=== PATIENT | female | born 1965 | race Caucasian/White ===

== ENCOUNTER → 2016-07-17 | Outpatient (CLI) | payer BC ==
[~2016-07-17] MED LIST: LSNUNK; RIZA10TA19 PO; SYN175 PO
== END | disposition home or self-care (01) ==
LOC: C.PAPS 14:24
PROVIDERS: ATTEND Obstetrics & Gynecology
DX: Z01.419 Encounter for gynecological examination (general) (routine) without abnormal findings (principal); Z87.42 Personal history of other diseases of the female genital tract; Z80.41 Family history of malignant neoplasm of ovary

== ENCOUNTER → 2016-07-17 | Outpatient (CLI) | payer BC | END | disposition home or self-care (01) | LOC: C.LAB1850 12:12 | PROVIDERS: ATTEND Obstetrics & Gynecology | DX: Z80.41 Family history of malignant neoplasm of ovary (principal) ==

== ENCOUNTER → 2016-10-09 | Outpatient (CLI) | payer BC ==
[~2016-10-09] MED LIST changes: +OPTIRAY 320 IV PRN
[2016-10-09 16:08] LABS: ALT/SGPT 31 U/L (12-78); AMYLASE 39 U/L (25-115); BLOOD UREA NITROGEN 15 mg/dl (7-18); BUN/CREATININE RATIO 18.8 (10-20); CALCIUM 10.6 mg/dl (8.5-10.1); CARBON DIOXIDE 30 mmol/L (21-32); CHLORIDE 103 mmol/L (98-107); CREATININE 0.77 mg/dl (0.60-1.20); GLUCOSE 92 mg/dl (70-99); POTASSIUM 4.1 mmol/L (3.5-5.1); SODIUM 139 mmol/L (136-145)
[2016-10-09 16:11] LABS: ALB/GLOB RATIO 1.2 (0.9-2); ALKALINE PHOSPHATASE 73 U/L (45-117); AST/SGOT 17 U/L (15-37)
[2016-10-09 17:06] LABS: BASO % 0.4 %; BASO ABS # 0.04 K/uL (0-0.2); COMPLETE YES; EOS % 2.6 %; HEMATOCRIT 45.3 % (37-47); IG% 0.3 %; LYMPH % 24.9 %; LYMPH ABS # 2.22 K/uL (1.2-3.4); MEAN CELL VOLUME 89.9 fL (80-100); MEAN CORPUSCULAR HEMOGLOBIN 30.6 pg (25-34); MEAN PLATELET VOLUME 11.2 fL (7.4-10.4); MONO % 6.8 %; PLATELET COUNT 310 K/uL (130-400); RED BLOOD COUNT 5.04 M/uL (4.2-5.4); WHITE BLOOD COUNT 8.93 K/uL (4.8-10.8)
--- NOTE | 2016-10-09 17:58 | DIAGNOSTIC IMAGING REPORT ---
ABDOMEN AND PELVIS CT WITH IV AND ORAL CONTRAST CT DOSE: 240.01 mGy.cm HISTORY: Left-sided abdominal pain. TECHNIQUE: Multiaxial CT images of the abdomen and pelvis were performed following the use of intravenous and oral contrast. COMPARISON STUDY: Abdomen and pelvis CT 08/27/2009. FINDINGS: The lung bases are clear. The liver, spleen, adrenal glands, pancreas, and gallbladder are unremarkable. Stable postoperative changes within the interpolar region of the left kidney. No hydronephrosis. A 9 mm hypodense lesion within the lower pole the right kidney is too small to characterize. This is new from the prior study but favors a cyst. Slight increase in size in the 1 cm hypodense lesion within the left kidney. This also favors a cyst. No retroperitoneal lymphadenopathy. The bladder is unremarkable. Heterogeneous appearance to the uterus. This also contains a 1.8 cm enhancing nodule within the fundus. This favors a fibroid. Normal appendix. No evidence for bowel obstruction. No significant pelvic free fluid. Normal bladder. Questionable mild thickening of the descending colon and sigmoid colon which may be due to underdistention. IMPRESSION: 1. Questionable mild thickening within the descending colon and sigmoid colon which favors underdistention. However, a low-grade colitis cannot be entirely excluded. 2. No evidence for bowel obstruction. 3. Normal appendix. 4. Bilateral renal hypodense lesions which favor cysts. Stable postoperative changes within the left kidney Electronically signed by: Robin Luong M.D. 10/09/2016 5:57 PM Dictated Date/Time: 10/09/2016 5:48 PM
== END | disposition home or self-care (01) ==
LOC: C.CTS 14:58
PROVIDERS: ATTEND Internal Medicine
DX: R10.9 Unspecified abdominal pain (principal); R19.7 Diarrhea, unspecified; K62.5 Hemorrhage of anus and rectum

== ENCOUNTER → 2016-11-07 | Outpatient (CLI) | payer BC ==
[~2016-11-07] MED LIST changes: -OPTIRAY 320 IV PRN
--- NOTE | 2016-11-07 13:30 | MAMMOGRAPHY REPORT ---
BILATERAL DIGITAL SCREENING MAMMOGRAM WITH CAD: 11/07/2016 CLINICAL HISTORY: Routine screening. Patient has no complaints. TECHNIQUE: Bilateral CC and MLO views of the breasts with and without implant displacement views were obtained. Current study was also evaluated with a Computer Aided Detection (CAD) system. COMPARISON: Comparison is made to exams dated: 07/10/2013 mammogram, 09/19/2011 mammogram, 04/05/2010 [facility], 08/13/2006, and 08/27/2008. BREAST COMPOSITION: The tissue of both breasts is heterogeneously dense, which may obscure small mas ses. FINDINGS: Bilateral subpectoral silicone implants are stable compared to the prior recent mammograms. There are a few benign-appearing calcifications in the breasts. No new suspicious mass, architectu ral distortion or cluster of microcalcifications is seen. IMPRESSION: ACR BI-RADS CATEGORY 1: NEGATIVE There is no mammographic evidence of malignancy. A 1 year screening mammogram is recommended. The pa tient will receive written notification of the results. Approximately 10% of breast cancers are not detected with mammography. A negative mammographic report should not delay biopsy if a clinically suggestive mass is present. Ariela Nick M.D. ay/:11/07/2016 12:30:12 Wardrobe Technician: Beeln GUZMAN(Harriet)(Alfredo), [facility] letter sent: Normal 1/2 BI-RADS Code: ACR BI-RADS Category 1: Negative
== END | disposition home or self-care (01) ==
LOC: C.MAMM 10:55
PROVIDERS: ATTEND Internal Medicine
DX: Z12.31 Encounter for screening mammogram for malignant neoplasm of breast (principal); Z98.82 Breast implant status

== ENCOUNTER → 2017-03-15 | Outpatient (CLI) | payer BC ==
[2017-03-15 14:33] LABS: THYROID STIMULATING HORMONE 0.013 uIu/ml (0.300-4.500)
[2017-03-17 14:38] LABS: THYROGLOBULIN 0.1 NG/ML (2.8-40.9)
== END | disposition home or self-care (01) ==
LOC: C.LABSPEC 12:55
PROVIDERS: ATTEND Internal Medicine
DX: E03.9 Hypothyroidism, unspecified (principal)

== ENCOUNTER 2017-05-23 01:35 | Emergency (ER) | payer BC ==
[~2017-05-23] VITALS: Ht 160 cm; Wt 61.1 kg
[2017-05-23 01:37] VITALS: TEMP 37.3; Ht 160 cm; Wt 61.1 kg
[2017-05-23] MEDS ORDERED: PROCHLORPERAZINE 5 MG/ML 2 ML VIAL IV STA (01:51)
[2017-05-23] MEDS ORDERED: KETOROLAC TROMETHAMINE 30 MG/ML VIAL IV STA (01:51)
[2017-05-23] MEDS ORDERED: DiphenhydrAMINE HCL 50 MG/ML VIAL IV STA (01:51)
[2017-05-23 02:09] LABS: BASO % 0.2 %; BASO ABS # 0.02 K/uL (0-0.2); EOS ABS # 0.08 K/uL (0-0.5); HEMATOCRIT 39.9 % (37-47); HEMOGLOBIN 13.8 g/dL (12.0-16.0); IG# 0.02 K/uL (0.00-0.02); LYMPH % 6.5 %; LYMPH ABS # 0.53 K/uL (1.2-3.4); MEAN CELL VOLUME 90.1 fL (80-100); MEAN CORPUSCULAR HEMOGLOBIN 31.2 pg (25-34); MEAN CORPUSCULAR HGB CONC 34.6 g/dl (32-36); MEAN PLATELET VOLUME 9.9 fL (7.4-10.4); MONO % 9.2 %; MONO ABS # 0.75 K/uL (0.11-0.59); NEUT % 82.9 %; NEUT ABS # 6.71 K/uL (1.4-6.5); PLATELET COUNT 241 K/uL (130-400); RED CELL DISTRIBUTION WIDTH CV 12.9 % (11.5-14.5); RED CELL DISTRIBUTION WIDTH SD 42.4 fL (36.4-46.3); WHITE BLOOD COUNT 8.11 K/uL (4.8-10.8)
[2017-05-23 02:25] LABS: INFLUENZA B ANTIGEN Neg for Influ B (NEG)
[2017-05-23 02:28] LABS: CALCIUM 9.2 mg/dl (8.5-10.1); CREATININE 0.7 mg/dl (0.60-1.20); POTASSIUM 3.6 mmol/L (3.5-5.1)
[2017-05-23] MEDS ORDERED: MULT-506 PO (02:41)
[2017-05-23] MEDS ORDERED: LEVO175T3 PO (02:41)
[2017-05-23] MEDS ORDERED: LISI-461 PO (02:41)
[2017-05-23] MEDS ORDERED: AMT50 PO (02:41)
[2017-05-23 03:07] VITALS: BP 126/89; PULSE 91; O2SAT 95
--- NOTE | 2017-05-23 03:30 | EMERGENCY ROOM VISIT NOTE ---
History First contact with patient: 01:41 Chief Complaint: HEADACHE Stated Complaint: MIGRAINE,POSSIBLE FLU History of Present Illness The patient is a 52 year old female who presents to the Emergency Room with complaints of headache and flulike symptoms. The patient reports that she has had flulike symptoms since this morning. She reports chills, body aches and cough. She states that she has had a headache since the symptoms started which has not improved with Excedrin or Tylenol. She does report a history of migraine headaches and states this feels somewhat similar. This is not the worst headache of her life. She has been increasing fluids throughout the day. She denies nausea or vomiting. She denies light sensitivity, neck pain or stiffness. She has not noticed any fevers. She rates her overall discomfort at 10/10. Review of Systems A complete 10 point review of systems was reviewed with the patient with pertinent positives and negatives as per history of present illness. All else were negative. Past Medical/Surgical History Medical Problems: (1) Migraine Family History Patient reports no known family medical history. Social History Smoking Status: Never Smoker Marital Status: Housing Status: lives with family Occupation Status: employed Current/Historical Medications Scheduled Amitriptyline Hcl (Elavil), 50 MG PO HS Levothyroxine Sodium (Levothyroxine Sodium), 1 TAB PO DAILY Lisinopril (Zestril), 10 MG PO DAILY Multivitamin (Multivitamin), 1 TAB PO DAILY Physical Exam Vital Signs Date Time Temp Pulse Resp B/P (MAP) Pulse Ox O2 Delivery O2 Flow Rate FiO2 05/23/17 03:07 91 19 126/89 95 Room Air 05/23/17 01:37 37.3 103 20 164/93 97 Room Air Physical Exam VITALS: Vitals are noted on the nurse's note and reviewed by myself. Vital signs stable. GENERAL: This is a 52-year-old female, in no acute distress, nondiaphoretic, well-developed well-nourished. SKIN: The skin was without rashes. EARS: External auditory canals clear, tympanic membranes pearly verdugo without erythema or effusion bilaterally. EYES: Pupils equal round and reactive to light and accommodation. Extraocular movements intact. NOSE: Patent, turbinates without inflammation or discharge. MOUTH: Mucous membranes moist. Tonsils are not enlarged. Pharynx without erythema or exudate. NECK: Supple without nuchal rigidity. No lymphadenopathy. Full range of motion of the neck. No meningismus. HEART: Regular rate and rhythm without murmurs gallops or rubs. LUNGS: Clear to auscultation bilaterally without wheezes, rales or rhonchi. No retractions or accessory muscle use. ABDOMEN: Positive bowel sounds x 4. Soft, nontender. NEURO: Patient was alert and oriented to person place and time. Medical Decision & Procedures Laboratory Results 05/23/17 02:01 Red Blood Count 4.43, Mean Corpuscular Volume 90.1, Mean Corpuscular Hemoglobin 31.2, Mean Corpuscular Hemoglobin Concent 34.6, Mean Platelet Volume 9.9, Neutrophils (%) (Auto) 82.9, Lymphocytes (%) (Auto) 6.5, Monocytes (%) (Auto) 9.2, Eosinophils (%) (Auto) 1.0, Basophils (%) (Auto) 0.2, Neutrophils # (Auto) 6.71, Lymphocytes # (Auto) 0.53, Monocytes # (Auto) 0.75, Eosinophils # (Auto) 0.08, Basophils # (Auto) 0.02 05/23/17 02:01 Test 05/23/17 01:55 05/23/17 02:01 Influenza Type A Antigen POS for Influ A (NEG) Influenza Type B Antigen Neg for Influ B (NEG) White Blood Count 8.11 K/uL (4.8-10.8) Red Blood Count 4.43 M/uL (4.2-5.4) Hemoglobin 13.8 g/dL (12.0-16.0) Hematocrit 39.9 % (37-47) Mean Corpuscular Volume 90.1 fL (80-100) Mean Corpuscular Hemoglobin 31.2 pg (25-34) Mean Corpuscular Hemoglobin Concent 34.6 g/dl (32-36) Platelet Count 241 K/uL (130-400) Mean Platelet Volume 9.9 fL (7.4-10.4) Neutrophils (%) (Auto) 82.9 % Lymphocytes (%) (Auto) 6.5 % Monocytes (%) (Auto) 9.2 % Eosinophils (%) (Auto) 1.0 % Basophils (%) (Auto) 0.2 % Neutrophils # (Auto) 6.71 K/uL (1.4-6.5) Lymphocytes # (Auto) 0.53 K/uL (1.2-3.4) Monocytes # (Auto) 0.75 K/uL (0.11-0.59) Eosinophils # (Auto) 0.08 K/uL (0-0.5) Basophils # (Auto) 0.02 K/uL (0-0.2) RDW Standard Deviation 42.4 fL (36.4-46.3) RDW Coefficient of Variation 12.9 % (11.5-14.5) Immature Granulocyte % (Auto) 0.2 % Immature Granulocyte # (Auto) 0.02 K/uL (0.00-0.02) Anion Gap 5.0 mmol/L (3-11) Est Creatinine Clear Calc Drug Dose 77.7 ml/min Estimated GFR () 115.5 Estimated GFR (Non- 99.6 BUN/Creatinine Ratio 9.9 (10-20) Calcium Level 9.2 mg/dl (8.5-10.1) Medications Administered Medications (Trade) Dose Ordered Sig/Ranjan Route Start Time Stop Time Status Last Admin Dose Admin Ketorolac Tromethamine (Toradol Inj) 30 mg NOW STAT IV 05/23/17 01:51 05/23/17 01:53 DC 05/23/17 02:01 30 MG Prochlorperazine Edisylate (Compazine Inj) 10 mg NOW STAT IV 05/23/17 01:51 05/23/17 01:53 DC 05/23/17 02:00 10 MG Diphenhydramine HCl (Benadryl Inj) 25 mg NOW STAT IV 05/23/17 01:51 05/23/17 01:53 DC 05/23/17 02:01 25 MG ED Course The patient was evaluated as above. Labs were drawn and IV access was obtained. Patient was medicated with Toradol, Benadryl and Compazine. Patient was reevaluated and states she is feeling much better. Discharge instructions were reviewed with the patient. The patient verbalized understanding of my assessment and treatment plan and was discharged home in good condition. Medical Decision The differential diagnosis includes influenza, meningitis, encephalitis, mass or mass effect, sinusitis, infection, tumor, headache, temporal arteritis and carbon monoxide exposure, and migraine. The patient is a 52-year-old female who presents today complaining of headache and flulike symptoms. Labs revealed positive influenza A. No leukocytosis. There is no evidence of meningitis on exam. Patient does have headache and was treated for this with good relief. It is not the worst headache of her life. She was offered Tamiflu but declined. Conservative measures were discussed with the patient. She will follow-up with her primary care provider for recheck. Based on the patient's presentation and work up, I feel the patient is stable for outpatient treatment. The patient was educated to return to the emergency department for any worsening of their current condition or new/concerning symptoms. She will follow up with her PCP. Medication Reconcilliation Current Medication List: was personally reviewed by me Blood Pressure Screening Patient's blood pressure: Normal blood pressure Impression Primary Impression: Influenza A Additional Impression: Headache Departure Information Dispostion Home / Self-Care Condition GOOD Referrals Akin Santiago M.D. (PCP) Patient Instructions My [facility] Additional Instructions Your influenza test was positive. For pain/fever control, you can use the following [id number] medicines ( if >12 yo): - Regular strength (325mg/tab) Tylenol (acetaminophen) 2 tabs every 4-6 hours as needed. Do not exceed 12 tablets in a 24 hour period. Avoid taking more than 4 grams (4000 mg) of Tylenol per day. This includes any other sources of acetaminophen you may take on a regular basis. - Regular strength (200 mg/tab) Advil (ibuprofen) 3-4 tabs every 4-6 hours as needed. Do not exceed a dose of 3200 mg per day. Rest and drink plenty of fluids. Follow-up with your primary care provider as needed. Return to the emergency department with neck pain/stiffness, difficulty breathing, uncontrollable vomiting or any other new/concerning symptoms. Problem Qualifiers Additional Impression: Headache Headache type: unspecified Headache chronicity pattern: unspecified pattern Intractability: not intractable Qualified Codes: R51 - Headache
== END 2017-05-23 03:37 | disposition home or self-care (01) ==
LOC: C.EDB 01:36 → C.EDA 03:37
DX: J11.1 Influenza due to unidentified influenza virus with other respiratory manifestations (principal); G43.909 Migraine, unspecified, not intractable, without status migrainosus

== ENCOUNTER → 2017-05-30 | Outpatient (CLI) | payer BC ==
[~2017-05-30] MED LIST changes: +AMT50 PO; +LEVO175T3 PO; +LISI-461 PO; -LSNUNK; +MULT-506 PO; -RIZA10TA19 PO; -SYN175 PO
== END | disposition home or self-care (01) ==
LOC: C.LABSPEC 12:29
PROVIDERS: ATTEND Internal Medicine
DX: E03.9 Hypothyroidism, unspecified (principal)

== ENCOUNTER → 2017-08-31 | Outpatient (CLI) | payer BC | END | disposition home or self-care (01) | LOC: C.LAB1850 09:56 | PROVIDERS: ATTEND Obstetrics & Gynecology | DX: Z80.41 Family history of malignant neoplasm of ovary (principal) ==